=== PATIENT | female | born 1985 ===

== ENCOUNTER 2017-02-18 09:26 | Emergency (ER) | payer MEDICAID, OTHER ==
[2017-02-18 10:04] VITALS: BP 115/80; PULSE 104; RESP 18; TEMP 98.4; O2SAT 96
--- NOTE | 2017-02-18 10:48 | C.PDOC ---
History Of Present Illness 31 year old female presents to the ED with complaints of an area of swelling/ lump at the left hip for "several years." Patient notes she was seen previously for swelling under the right arm by Dr. Stover, and had something removed ( unsure of details). She has not been seen by Dr Stover yet for this current complaint, but states she was told by her PMD that "there is nothing there". Patient denies falls, injury, rash, fever, pain, drainage. Time Seen by Provider: 02/18/17 10:37 Chief Complaint (Nursing): Abnormal Skin Integrity History Per: Patient History/Exam Limitations: no limitations Onset/Duration Of Symptoms: Persistent ("several years" ) Current Symptoms Are (Timing): Still Present Location Of Injury: Left: Hip (swelling/lump) Quality Of Symptoms: Swollen Past Medical History Reviewed: Historical Data, Nursing Documentation, Vital Signs Vital Signs: Last Vital Signs Temp 98.4 F 02/18/17 10:04 Pulse 104 H 02/18/17 10:04 Resp 18 02/18/17 10:04 BP 115/80 02/18/17 10:04 Pulse Ox 96 02/18/17 12:17 - Medical History PMH: Anxiety, Bipolar Disorder Family History: States: No Known Family Hx - Social History Hx Alcohol Use: No Hx Substance Use: No - Immunization History Hx Tetanus Toxoid Vaccination: No Hx Influenza Vaccination: No Hx Pneumococcal Vaccination: No Review Of Systems Except As Marked, All Systems Reviewed And Found Negative. Constitutional: Negative for: Fever, Chills Cardiovascular: Negative for: Chest Pain Respiratory: Negative for: Shortness of Breath Gastrointestinal: Negative for: Nausea, Vomiting, Abdominal Pain Musculoskeletal: Positive for: Other (swelling to left hip/lump) Skin: Negative for: Rash Physical Exam - Physical Exam Appears: Well, Non-toxic, No Acute Distress, Other (anxious appearing) Skin: Normal Color, Warm, Dry, No Rash, Other (no swelling or erythema to left hip area ) Eye(s): bilateral: Normal Inspection Cardiovascular: Rhythm Regular Respiratory: Normal Breath Sounds, No Rales, No Rhonchi, No Wheezing Gastrointestinal/Abdominal: Normal Exam, Bowel Sounds, Soft, No Tenderness, No Mass (no palpable mass/swelling to the left hip. ), No Distention, Other ( morbidly obese, fat pads noted at B/L hips, equal in size and and appearance B/L ) Extremity: Normal ROM, No Tenderness Neurological/Psych: Oriented x3 ED Course And Treatment O2 Sat by Pulse Oximetry: 96 (room air ) Pulse Ox Interpretation: Normal Progress Note: Patient reassurred that I do not see anything unusual on physical exam - appears to have fat pads at B/L hips that are equal and unremarkable in appearance. Patient instructed to follow up with her surgeon Dr. Stover for further evaluation. She understands she should return to ED if she has any concerning symptoms. Disposition Counseled Patient/Family Regarding: Diagnosis, Need For Followup - Disposition Referrals: Jad Stover MD [Staff Provider] - Disposition: HOME/ ROUTINE Disposition Time: 11:05 Condition: STABLE Additional Instructions: FOLLOW UP WITH YOUR SURGEON DR STOVER WITHIN 1 WEEK RETURN TO ER IF YOU HAVE ANY CONCERNING/WORSENING SYMPTOMS Forms: [facility] (Tongan), General Discharge Instructions Print Language: URDU - POA Present On Arrival: None - Clinical Impression Clinical Impression: Fat pad - Scribe Statement The provider has reviewed the documentation as recorded by the Scribtaylor Heaton All medical record entries made by the Erikaibtaylor were at my direction and personally dictated by me. I have reviewed the chart and agree that the record accurately reflects my personal performance of the history, physical exam, medical decision making, and the department course for this patient. I have also personally directed, reviewed, and agree with the discharge instructions and disposition.
== END 2017-02-18 11:38 | disposition home or self-care (01) ==
LOC: C.ER 09:26
DX: E65 Localized adiposity (principal)

== ENCOUNTER 2017-11-21 06:31 | Emergency (ER) | payer OTHER ==
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
[2017-11-21 08:46] VITALS: BP 130/64; PULSE 88; RESP 18; TEMP 98.6; O2SAT 100
== END 2017-11-21 08:45 | disposition home or self-care (01) ==
LOC: C.ER 06:31
DX: Z04.8 Encounter for examination and observation for other specified reasons (principal)

== ENCOUNTER 2017-11-21 12:07 | Emergency (ER) | payer OTHER ==
[2017-11-21 12:18] VITALS: BP 114/81; PULSE 89; RESP 16; TEMP 98; O2SAT 100
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
== END 2017-11-21 12:24 | disposition left against medical advice (07) ==
LOC: C.ER 12:07
DX: Z04.8 Encounter for examination and observation for other specified reasons (principal)

== ENCOUNTER 2017-11-21 17:27 | Emergency (ER) | payer OTHER ==
[2017-11-21 17:42] VITALS: BMI 34.1
[2017-11-21 17:52] VITALS: BP 124/81; PULSE 108; RESP 20; TEMP 98.8; O2SAT 100
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
== END 2017-11-21 18:11 | disposition left against medical advice (07) ==
LOC: C.ER 17:27
DX: Z04.8 Encounter for examination and observation for other specified reasons (principal)

== ENCOUNTER 2017-11-23 04:14 | Emergency (ER) | payer OTHER ==
[2017-11-23 04:16] VITALS: BMI 34.1
[2017-11-23 04:37] VITALS: TEMP 98.7
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
[2017-11-23 06:26] VITALS: BP 126/74; PULSE 100; RESP 18; O2SAT 99
== END 2017-11-23 06:15 | disposition home or self-care (01) ==
LOC: C.ER 04:14
DX: F41.9 Anxiety disorder, unspecified (principal)

== ENCOUNTER → 2017-11-23 21:28 | Emergency (ER) | payer OTHER ==
[2017-11-23 21:28] VITALS: BMI 34.1
== END | disposition left against medical advice (07) ==
LOC: C.ER 21:28
DX: Z02.89 Encounter for other administrative examinations (principal)

== ENCOUNTER 2018-06-02 11:20 | Outpatient (CLI) | payer OTHER, MEDICAID | END 2018-06-02 11:21 | disposition home or self-care (01) | LOC: C.LAB 11:20 | DX: F32.1 Major depressive disorder, single episode, moderate (principal) ==